=== PATIENT | male | born 1985 | race Caucasian/White ===

== ENCOUNTER 2019-04-04 21:35 | Emergency (ER) | payer SELFPAY ==
[~2019-04-04] VITALS: Ht 185.4 cm; Wt 81.6 kg
[2019-04-04] MEDS ORDERED: HALOPERIDOL LACTATE 5 MG/ML INJ VIAL ONE (22:04)
[2019-04-04] MEDS ORDERED: LORazepam 2MG/ML-1ML VIAL ONE (22:04)
[2019-04-04] MEDS ORDERED: diphenhdrAMINE HCL 50 MG/1 ML VL ONE (22:04)
[2019-04-04 22:28] LABS: Urine WBC None Seen /hpf (0 - 3)
[2019-04-04 22:30] LABS: Basophils # (auto) 0.2 uL; Eosinophils # (auto) 0.2 uL; Eosinophils % (auto) 3.1 % (0.0-7.0); Monocytes # (auto) 0.4 uL; Neutrophils # (auto) 2.5 uL; Red Blood Cells 4.26 10^6/uL (4.5-5.90); White Blood Cell 5.7 10^3/uL (4.4-10.8)
[2019-04-04] MEDS ORDERED: SODIUM CHLORIDE 0.9% 2,000 ML IV ONE (22:30)
[2019-04-04 22:32] LABS: Hematocrit 44.3 % (41.0-53.0); Hemoglobin 15.4 g/dL (13.5-17.5); Lymphocytes # (auto) 2.4 uL; Lymphocytes % (auto) 42.1 % (10.0-50.0); Mean Corpuscular Hemoglobin 36.2 pg (28.0-32.0); Mean Corpuscular Hgb Conc. 34.9 g/dL (32.0-36.0); Mean Corpuscular Volume 103.8 fL (80.0-100.0); Monocytes % (auto) 7.8 % (0.0-12.0); Platelet Count (auto) 168 10^3/uL (140-450); Red Cell Distribution Width 14.7 % (11.8-14.3)
[2019-04-04 22:41] LABS: Urine Bacteria NONE SEEN /hpf (None Seen); Urine Blood Negative /uL (Negative); Urine Specific Gravity 1.006 (1.001-1.035)
[2019-04-04 22:44] LABS: Albumin 3.9 g/dL (3.4-5.0); BUN/Creatinine Ratio 16.9; Calcium 8.5 mg/dL (8.5-10.1); Potassium 3.5 mmol/L (3.5-5.1)
[2019-04-04 22:58] LABS: Bilirubin, Total 0.3 mg/dL (0.2-1.0); Total Protein 7.4 g/dL (6.4-8.2)
[2019-04-04] MEDS ORDERED: MULTIPLE VITAMIN 10 ML, MAGNESIUM SULF SDV 50% 8 MEQ, THIAMINE INJ 100 MG in SODIUM CHL... IV ONE (23:12)
[2019-04-04 23:44] LABS: Barbiturate Scree,Urine NEGATIVE (NEGATIVE); Benzodiazephine Screen, Urine POSITIVE (NEGATIVE); Cannabinoid Screen, Urine NEGATIVE (NEGATIVE); Cocaine Screen, Urine NEGATIVE (NEGATIVE); Opiate Scree,Urine NEGATIVE (NEGATIVE); Phencyclidine Screen, Urine NEGATIVE (NEGATIVE)
[2019-04-04 23:53] LABS: Amphetamine Screen, Urine NEGATIVE (NEGATIVE)
[2019-04-05 00:14] LABS: Alcohol, Urine 552.6 mg/dL (0-5)
[2019-04-05] MEDS ORDERED: MVI in SODIUM CHLORIDE 0.9% 1,010 ML ONE (00:17)
[2019-04-05] MEDS ORDERED: THIAMINE 100mg/ml INJ (200mg/2ml VIAL) ONE (00:17)
[2019-04-05] MEDS ORDERED: SODIUM CHLORIDE 0.9% 1,000 ML IV ONE (07:00)
[2019-04-05 07:21] VITALS: BP 105/63
== END 2019-04-05 09:43 | disposition home or self-care (01) ==
LOC: EDBD 21:35 → ER 21:35
DX: G92 Toxic encephalopathy (principal); R41.82 Altered mental status, unspecified; F10.129 Alcohol abuse with intoxication, unspecified; F19.10 Other psychoactive substance abuse, uncomplicated; Y90.8 Blood alcohol level of 240 mg/100 ml or more
CPT/HCPCS: 36415; 71045; 80053; 80307; 80320; 81001; 82962; 85025; 94761; 96361; 96365; 96366; 99284; J1200; J1630; J2060; J3411; J3475; J7030